=== PATIENT | female | born 1980 | race Caucasian/White ===

== ENCOUNTER 2017-10-25 16:59 | Emergency (ER) | payer SELFPAY ==
[2017-10-25 18:12] LABS: Urine Blood NEGATIVE (NEG); Urine Glucose NEGATIVE (NEG); Urine Protein NEGATIVE (NEG); Urine pH 6.5 (5.0-7.0)
[2017-10-25 19:04] LABS: Absolute Lymphocytes (CBC) 2.3 K/uL (0.7-4.9); Absolute Monocytes 0.6 K/uL (0.1-1.3); Absolute Neutrophil 5.9 K/uL (1.8-8.0); Basophils % 1.2 % (0-1.3); Eosinophils % 3.6 % (0-4.4); Hematocrit 39.6 % (36.0-45.0); Lymphocytes % 24.9 % (15.3-44.8); MCH 30.9 pg (27.0-35.0); MCV 90.1 fL (80-100); MPV 8.4 fL (7.6-11.3); Monocytes % 6.1 % (3.3-12.3)
[2017-10-25 19:34] LABS: ALT/SGPT 115 U/L (12-78); AST/SGOT 107 U/L (15-37); Albumin 4.3 g/dL (3.4-5.0); Alkaline Phosphatase 84 U/L (45-117); BUN Blood Urea Nitrogen 8 mg/dL (7-18); Bicarbonate 24 mmol/L (21-32); Bilirubin Direct 0.1 mg/dL (0-0.2); Bilirubin Total 0.4 mg/dL (0.2-1.0); Glucose Level 83 mg/dL (74-106); Lipase 130 U/L (73-393); Potassium 3.8 mmol/L (3.5-5.1); Protein, Total 8.3 g/dL (6.4-8.2); Sodium Level 140 mmol/L (136-145)
[2017-10-25 19:36] LABS: HCG, Quantitative < 1 mIU/mL (1-3)
--- NOTE | 2017-10-25 20:22 | RAD REPORT ---
EXAM DESCRIPTION: CT - Abdomen Pelvis W Contrast - 10/25/2017 7:59 pm CLINICAL HISTORY: Abdominal pain COMPARISON: None. TECHNIQUE: Biphasic, helical CT imaging of the abdomen and pelvis was performed following 100 ml non -ionic IV contrast. No oral contrast administered. All CT scans are performed using dose optimization technique as appropriate and may include automated exposure control or mA/KV adjustment according to patient size. FINDINGS: No suspicious findings in the lung bases. Diffuse fatty infiltration of the liver is present. No focal liver lesion. Spleen and pancreas show n o suspicious findings. Gallbladder and biliary tree are also without suspicious finding. Symmetric renal function is seen with no hydronephrosis or suspicious renal mass. No pyelonephritis o r acute renal parenchymal process. Punctate nonobstructing caliceal calculi are present. No urinary b ladder wall thickening, stone or mass. No adrenal abnormality. No uterine abnormality. Right ovary is unremarkable. Left ovary contains a 3.2 centimeter cyst. No cy st rupture or hemorrhage identified. No dilated bowel loops or bowel wall thickening. Appendix is normal. No acute GI process is evident. No free air, free fluid or inflammatory stranding. No mass or bulky lymphadenopathy. A small fat onl y umbilical hernia present. No suspicious bony findings. IMPRESSION: No acute GI or process seen. Punctate nonobstructing caliceal calculi present. No obs tructing calculus. No emergent abdominal or pelvic finding. Patient has a 3.2 centimeter left ovarian cyst without evidence for rupture or hemorrhage. Diffuse fatty infiltration of the liver.
--- NOTE | 2017-10-25 21:53 | ER ---
Nurse's Notes [facility] Name: Sugar Magana Age: 37 yrs Sex: Female : 1980 Arrival Date: 10/25/2017 Time: 17:02 Bed 16 Private MD: None, None Diagnosis: Abdominal and pelvic pain Presentation: 10/25 17:04 Presenting complaint: Patient states: "I think I may be . My stomach is hard sv and pushing up into my chest and causing palpitations." Rash to BLE started Monday. c/o SOB. Transition of care: patient was not received from another setting of care. Onset of symptoms was October 21, 2017. Care prior to arrival: None. 17:04 Method Of Arrival: Ambulatory sv 17:04 Acuity: CHIVO 3 sv 18:53 Risk Assessment: Do you want to hurt yourself or someone else? Patient reports no ph desire to harm self or others. Initial Sepsis Screen: Does the patient meet any 2 criteria? No. Patient's initial sepsis screen is negative. Does the patient have a suspected source of infection? No. Patient's initial sepsis screen is negative. 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 - Social history:: Smoking status: Patient/guardian denies using tobacco. - Ebola Screening: : No symptoms or risks identified at this time. Screenin:52 Abuse screen: Denies threats or abuse. Denies injuries from another. Nutritional ph screening: No deficits noted. Tuberculosis screening: No symptoms or risk factors identified. Fall Risk None identified. Assessment: 17:30 General: Appears in no apparent distress. comfortable, Behavior is calm, cooperative, ph appropriate for age, Denies fever, feeling ill. Pain: Denies pain. Neuro: Level of Consciousness is awake, alert, obeys commands, Oriented to person, place, time, situation. Cardiovascular: Reports palpitations, Denies chest pain, lightheadedness, nausea, vomiting, Capillary refill < 3 seconds Patient's skin is warm and dry. Respiratory: Airway is patent Respiratory effort is even, unlabored. GI: Abdomen is round non-distended, Bowel sounds present X 4 quads. Abd is soft and non tender X 4 quads. Reports bloating, Patient currently denies diarrhea, nausea, vomiting. Derm: Skin is intact, is healthy with good turgor, Skin is pink, warm \\T\\ dry. Musculoskeletal: Circulation, motion, and sensation intact. Range of motion: intact in all extremities. 18:59 Reassessment: Patient appears in no apparent distress at this time. Patient and/or ph family updated on plan of care and expected duration. Pain level reassessed. Patient is alert, oriented x 3, equal unlabored respirations, skin warm/dry/pink. Pt resting quietly, awaiting lab results. 19:25 General: Appears in no apparent distress. comfortable, Behavior is calm, cooperative, jb4 appropriate for age. Pain: Denies pain. Neuro: Level of Consciousness is awake, alert, obeys commands, Oriented to person, place, time, situation. Cardiovascular: Reports palpitations, Denies chest pain, lightheadedness, nausea, vomiting, Patient's skin is warm and dry. Respiratory: Airway is patent Respiratory effort is even, unlabored, Respiratory pattern is regular, symmetrical, Breath sounds are clear bilaterally. GI: Abdomen is round non-distended, Bowel sounds present X 4 quads. Abd is soft and non tender X 4 quads. Reports bloating, Patient currently denies diarrhea, nausea, vomiting. Derm: Skin is intact, Skin is pink, warm \\T\\ dry. Rash noted that is papular. Musculoskeletal: Circulation, motion, and sensation intact. Range of motion: intact in all extremities. 20:35 Reassessment: Patient appears in no apparent distress at this time. Patient and/or jb4 family updated on plan of care and expected duration. Pain level reassessed. Patient is alert, oriented x 3, equal unlabored respirations, skin warm/dry/pink. Patient denies pain at this time. 21:06 Reassessment: Patient appears in no apparent distress at this time. Patient and/or jb4 family updated on plan of care and expected duration. Pain level reassessed. Patient is alert, oriented x 3, equal unlabored respirations, skin warm/dry/pink. D/c \\T\\ F/u instructions to pt. Denies questions or concerns at this time. Vital Signs: 17:06 BP 166 / 107; Pulse 86; Resp 18; Temp 97.8; Pulse Ox 99% ; Height 5 ft. 0 in. (152.40 sv cm); Pain 0/10; 18:30 BP 129 / 96; Pulse 69; Resp 16; Pulse Ox 96% on R/A; ph 19:45 BP 105 / 85; Pulse 69; Resp 18; Pulse Ox 97% on R/A; Pain 0/10; jb4 20:30 BP 119 / 87; Pulse 71; Resp 18; Pulse Ox 96% on R/A; jb4 ED Course: 17:02 Patient arrived in ED. sb2 17:02 None, None is Private Physician. sb2 17:06 Triage completed. sv 17:07 Arm band placed on right wrist. sv 17:15 Timo Lira PA is PHCP. jr8 17:15 Darinel Loya MD is Attending Physician. jr8 17:21 Berna Cantrell, RN is Primary Nurse. ph 17:55 Bed in low position. Call light in reach. Side rails up X 1. Warm blanket given. Pulse jp3 ox on. NIBP on. 18:05 Initial lab(s) drawn, by al, sent to lab. Urine collected: clean catch specimen, clear, jp3 tonya colored, Amount Voided: 60mL. Inserted saline lock: 22 gauge in right forearm, using aseptic technique. Blood collected. 18:43 Basic Metabolic Panel Sent. jp3 18:43 HCG-Quantitative Sent. jp3 18:43 Basic Metabolic Panel Sent. jp3 18:43 CBC with Diff Sent. jp3 18:43 Creatinine for Radiology Sent. jp3 18:43 Hepatic Function Sent. jp3 18:43 Lipase Sent. jp3 19:17 Taqueria Curiel, RN is Primary Nurse. jb4 19:[address] via wheelchair. nj 19:59 CT completed. Patient tolerated procedure well. Patient moved back from CT. nj 19:59 CT Abd/Pelvis - W/Contrast In Process Unspecified. EDMS 21:06 No provider procedures requiring assistance completed. IV discontinued, intact, jb4 bleeding controlled. Administered Medications: No medications were administered Outcome: 20:38 Discharge ordered by . jr8 21:06 Discharged to home ambulatory. jb4 21:06 Condition: stable 21:06 Discharge instructions given to patient, family, Instructed on discharge instructions, follow up and referral plans. medication usage, Demonstrated understanding of instructions, follow-up care, medications, Prescriptions given X 1. 21:08 Patient left the ED. jb4 Signatures: Dispatcher [employer] EDMS Lavonne Farrar RN RN sv Timo Lira PA PA jr8 Berna Cantrell RN RN Taqueria Todd RN RN jb4 Winston Davalos Sheri sb2 Kale Luther jp3 Corrections: (The following items were deleted from the chart) 17:07 17:04 Presenting complaint: Patient states: "I think I may be . My stomach is sv hard and pushing up into my chest and causing palpitations." Rash to BLE started Monday. sv 17:08 17:06 BP 166 / 107; Resp 18bpm; Pulse Ox 99%; Temp 97.8F; Height 5 ft. 0 in.; Pain sv 0/10; sv
--- NOTE | 2017-10-25 21:53 | EDPHYS ---
Physician Documentation [facility] Name: Sugar Magana Age: 37 yrs Sex: Female : 1980 Arrival Date: 10/25/2017 Time: 17:02 Bed 16 Private MD: None, None ED Physician Darinel Loya HPI: 10/25 18:34 This 37 yrs old Female presents to ER via Ambulatory with complaints of Rash, jr8 Palpitations. 18:35 Patient stated that she has two spotty menstrual cycles for the past couple of months. jr8 Has had two + tests and some negative ones. Does not know if she is or not. Concerned because her stomach feels larger and when laying down feels as if she cannot breath. Noticed rash on arms an legs as well . Severity of symptoms: At their worst the symptoms were mild in the emergency department the symptoms are unchanged. The patient has not experienced similar symptoms in the past. The patient has not recently seen a physician. 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 - Social history:: Smoking status: Patient/guardian denies using tobacco. - Ebola Screening: : No symptoms or risks identified at this time. ROS: 18:35 Eyes: Negative for injury, pain, redness, and discharge, ENT: Negative for injury, jr8 pain, and discharge, Neck: Negative for injury, pain, and swelling, Cardiovascular: Negative for chest pain, palpitations, and edema, Respiratory: Negative for shortness of breath, cough, wheezing, and pleuritic chest pain, Back: Negative for injury and pain, MS/Extremity: Negative for injury and deformity, Neuro: Negative for headache, weakness, numbness, tingling, and seizure. 18:35 Abdomen/GI: Positive for abdominal pain, Negative for nausea, vomiting, and diarrhea. 18:35 Skin: Positive for rash. Exam: 18:40 Eyes: Pupils equal round and reactive to light, extra-ocular motions intact. Lids and jr8 lashes normal. Conjunctiva and sclera are non-icteric and not injected. Cornea within normal limits. Periorbital areas with no swelling, redness, or edema. ENT: Nares patent. No nasal discharge, no septal abnormalities noted. Tympanic membranes are normal and external auditory canals are clear. Oropharynx with no redness, swelling, or masses, exudates, or evidence of obstruction, uvula midline. Mucous membranes moist. Neck: Trachea midline, no thyromegaly or masses palpated, and no cervical lymphadenopathy. Supple, full range of motion without nuchal rigidity, or vertebral point tenderness. No Meningismus. Cardiovascular: Regular rate and rhythm with a normal S1 and S2. No gallops, murmurs, or rubs. Normal PMI, no JVD. No pulse deficits. Respiratory: Lungs have equal breath sounds bilaterally, clear to auscultation and percussion. No rales, rhonchi or wheezes noted. No increased work of breathing, no retractions or nasal flaring. Abdomen/GI: Soft, non-tender, with normal bowel sounds. No distension or tympany. No guarding or rebound. No evidence of tenderness throughout. Back: No spinal tenderness. No costovertebral tenderness. Full range of motion. MS/ Extremity: Pulses equal, no cyanosis. Neurovascular intact. Full, normal range of motion. Neuro: Awake and alert, GCS 15, oriented to person, place, time, and situation. Cranial nerves II-XII grossly intact. Motor strength 5/5 in all extremities. Sensory grossly intact. Cerebellar exam normal. Normal gait. 18:40 Skin: patient has flesh colored papule like rash to thighs and arms. Blanching and without erythema. Without pustules . Vital Signs: 17:06 BP 166 / 107; Pulse 86; Resp 18; Temp 97.8; Pulse Ox 99% ; Height 5 ft. 0 in. (152.40 sv cm); Pain 0/10; 18:30 BP 129 / 96; Pulse 69; Resp 16; Pulse Ox 96% on R/A; ph 19:45 BP 105 / 85; Pulse 69; Resp 18; Pulse Ox 97% on R/A; Pain 0/10; jb4 20:30 BP 119 / 87; Pulse 71; Resp 18; Pulse Ox 96% on R/A; jb4 MDM: 17:15 Patient medically screened. jr8 20:31 Data reviewed: vital signs, nurses notes, lab test result(s), radiologic studies, CT jr8 scan, and as a result, I will discharge patient. Data interpreted: Pulse oximetry: on room air is 96 %. Interpretation: normal. Counseling: I had a detailed discussion with the patient and/or guardian regarding: the historical points, exam findings, and any diagnostic results supporting the discharge/admit diagnosis, lab results, radiology results, the need for outpatient follow up, a family practitioner, to return to the emergency department if symptoms worsen or persist or if there are any questions or concerns that arise at home. 10/25 17:41 Order name: Basic Metabolic Panel [facility] 10/25 17:41 Order name: CBC with Diff; Complete Time: 19:33 [facility] 10/25 17:41 Order name: Creatinine for Radiology; Complete Time: 19:33 [facility] 10/25 17:41 Order name: Hepatic Function; Complete Time: 19:43 [facility] 10/25 17:41 Order name: Lipase; Complete Time: 19:43 [facility] 10/25 17:41 Order name: HCG-Quantitative; Complete Time: 19:43 [facility] 10/25 17:41 Order name: Urine Test (obtain specimen); Complete Time: 18:43 [facility] 10/25 17:41 Order name: IV Saline Lock; Complete Time: 18:43 [facility] 10/25 17:41 Order name: Labs collected and sent; Complete Time: 18:43 [facility] 10/25 17:41 Order name: Urine Dipstick-Ancillary (obtain specimen); Complete Time: 18:43 [facility] 10/25 17:42 Order name: Basic Metabolic Panel; Complete Time: 19:43 [facility] 10/25 17:57 Order name: Urine Dipstick--Ancillary (enter results); Complete Time: 18:34 eb 10/25 17:57 Order name: Urine --Ancillary (enter results); Complete Time: 18:34 10/25 19:43 Order name: CT Abd/Pelvis - W/Contrast; Complete Time: 20:31 jr8 Administered Medications: No medications were administered Disposition: 10/25/17 20:38 Discharged to Home. Impression: Abdominal and pelvic pain. - Condition is Stable. - Discharge Instructions: Abdominal Pain, Adult. - Prescriptions for Prednisone 20 mg Oral Tablet - take 1 tablet by ORAL route once daily for 5 days; 5 tablet. - Medication Reconciliation Form, Thank You Letter, Antibiotic Education, Prescription Opioid Use form. - Follow up: Private Physician; When: 2 - 3 days; Reason: Recheck today's complaints, Continuance of care, Re-evaluation by your physician. - Problem is new. - Symptoms have improved. Addendum: 10/29/2017 18:22 Co-signature as Attending Physician, Darinel Loya MD. m a2 Signatures: Dispatcher [employer] EDLavonne Motley RN RN Timo Jj PA PA jr8 Taqueria Curiel RN RN jb4 Darinel Loya MD MD ma2 Corrections: (The following items were deleted from the chart) 10/25 21:08 20:38 10/25/2017 20:38 Discharged to Home. Impression: Abdominal and pelvic pain. jb4 Condition is Stable. Forms are Medication Reconciliation Form, Thank You Letter, Antibiotic Education, Prescription Opioid Use. Follow up: Private Physician; When: 2 - 3 days; Reason: Recheck today's complaints, Continuance of care, Re-evaluation by your physician. Problem is new. Symptoms have improved. jr8
[2017-10-25 22:24] VITALS: TEMP 97.8
[2017-10-25 22:28] VITALS: BP 119/87; O2SAT 96
== END 2017-10-25 21:08 | disposition home or self-care (01) ==
LOC: ER 16:59
DX: R10.2 Pelvic and perineal pain (principal); R21 Rash and other nonspecific skin eruption
CPT/HCPCS: 36415; 74177; 80048; 80076; 81003; 81025; 83690; 84702; 85025; 99284; Q9967

== ENCOUNTER 2020-08-22 10:36 | Inpatient (IN) | payer SELFPAY ==
--- NOTE | 2020-08-22 11:28 | RAD REPORT ---
EXAM DESCRIPTION: RAD - Chest Single View - 08/22/2020 11:14 am CLINICAL HISTORY: DYSPNEA COMPARISON: None TECHNIQUE: AP portable chest image was obtained 08/22/2020 11:14 am . FINDINGS: Lungs are clear. Heart and vasculature are normal. No measurable pleural effusion and no p neumothorax. No acute bony abnormality seen. No acute aortic findings suspected. IMPRESSION: No acute cardiopulmonary process.
[2020-08-22 11:31] LABS: Absolute Lymphocytes (CBC) 2.5 K/uL (0.7-4.9); Basophils % 0.7 % (0-1.3); Lymphocytes % 15.6 % (15.3-44.8); MPV 9.3 fL (7.6-11.3); RBC Red Blood Cell Count 2.44 M/uL (3.86-4.86)
[2020-08-22 11:36] LABS: Protime INR 1.09
[2020-08-22 11:42] LABS: Hematocrit 20.8 % (36.0-45.0)
[2020-08-22 11:56] LABS: ALT/SGPT 36 U/L (12-78); AST/SGOT 28 U/L (15-37); Albumin 3.9 g/dL (3.4-5.0); Alkaline Phosphatase 74 U/L (45-117); BUN Blood Urea Nitrogen 14 mg/dL (7-18); Bicarbonate 19 mmol/L (21-32); Bilirubin Direct < 0.1 mg/dL (0-0.2); Bilirubin Total 0.3 mg/dL (0.2-1.0); Glucose Level 155 mg/dL (74-106); NT PRO-BNP 50 pg/mL (<125); Potassium 3.6 mmol/L (3.5-5.1); Protein, Total 7.2 g/dL (6.4-8.2); Sodium Level 138 mmol/L (136-145); Troponin (Emerg Dept Use Only) 0.03 ng/mL (0.0-0.045)
[2020-08-22 12:06] LABS: Urine Blood 1+ (Negative); Urine Glucose Negative (Negative); Urine Protein 1+ (Negative); Urine Specific Gravity >=1.030 (1.005-1.030); Urine pH 5.5 (5.0-7.0)
[2020-08-22 12:29] LABS: Urine Specific Gravity/Preg >1.030 (1.005-1.030)
[2020-08-22 12:37] LABS: Anisocytosis 2+; Blood Morphology Comment NOTED (NOT SEEN); Platelet Estimate ADEQ; Polychromasia SLIGHT
[2020-08-22] MEDS ORDERED: NA CHLORIDE 0.9% 250 ML ONE ×2 (12:50→14:29)
[2020-08-22] MEDS ORDERED: ACETAMINOPHEN 325 MG TABLET ONE (13:52)
[2020-08-22] MEDS ORDERED: DIPHENHYDRAMINE 50 MG/ML VIAL ONE (13:53)
--- NOTE | 2020-08-22 14:53 | EDPHYS ---
Physician Documentation [facility] Name: Sugar Magana Age: 40 yrs Sex: Female : 1980 Arrival Date: 08/22/2020 Time: 10:36 Bed Ultrasound Private MD: ED Physician Sagar Freitas HPI: 08/22 12:42 This 40 yrs old Female presents to ER via Wheelchair with complaints of jr8 Shortness Of Breath. 12:42 The patient has shortness of breath at rest. Onset: The symptoms/episode began/occurred jr8 acutely, today. Duration: The symptoms are continuous, and are steadily getting worse. The patient's shortness of breath is aggravated by exertion, light activity, walking. Associated signs and symptoms: Pertinent positives: dizziness. Severity of symptoms: At their worst the symptoms were moderate in the emergency department the symptoms are unchanged. The patient has not experienced similar symptoms in the past. The patient has not recently seen a physician. Patient stated that she had sudden onset shortness of breath with dizziness and fatigue. Currently on menstrual cycle but feels it is not heavier than what she normally experiences. Denies having this problems before. No medical history . 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 Flu vaccine is not up to date. - Social history:: Smoking status: Patient reports the use of cigarette tobacco products, smokes one-half pack cigarettes per day. ROS: 12:42 Eyes: Negative for injury, pain, redness, and discharge, ENT: Negative for injury, jr8 pain, and discharge, Neck: Negative for injury, pain, and swelling, Cardiovascular: Negative for chest pain, palpitations, and edema, Abdomen/GI: Negative for abdominal pain, nausea, vomiting, diarrhea, and constipation, Back: Negative for injury and pain, MS/Extremity: Negative for injury and deformity. 12:42 Respiratory: Positive for cough, shortness of breath. 12:42 : Positive for vaginal bleeding. 12:42 Skin: Positive for pallor. 12:42 Neuro: Positive for dizziness, weakness. Exam: 12:42 Head/Face: Normocephalic, atraumatic. ENT: Nares patent. No nasal discharge, no jr8 septal abnormalities noted. Oropharynx with no redness, swelling, or masses, exudates, or evidence of obstruction, uvula midline. Mucous membranes dry. Gums and lips pale Neck: Trachea midline, no thyromegaly or masses palpated, and no cervical lymphadenopathy. Supple, full range of motion without nuchal rigidity, or vertebral point tenderness. No Meningismus. Abdomen/GI: Soft, non-tender, with normal bowel sounds. No distension or tympany. No guarding or rebound. No evidence of tenderness throughout. Back: No spinal tenderness. No costovertebral tenderness. Full range of motion. MS/ Extremity: Pulses equal, no cyanosis. Neurovascular intact. Full, normal range of motion. Neuro: Awake and alert, GCS 15, oriented to person, place, time, and situation. Cranial nerves II-XII grossly intact. Motor strength 5/5 in all extremities. Sensory grossly intact. 12:42 Eyes: Periorbital structures: are sunken, Pupils: equal, round, and reactive to light and accomodation, Extraocular movements: intact throughout, Conjunctiva: pale, bilaterally, Corneas: are normal, Sclera: no appreciated abnormality, Anterior chamber: normal, Lids and lashes: appear normal. 12:42 Cardiovascular: Rate: tachycardic, Rhythm: regular, Pulses: Pulses are 1+ in right radial artery and left radial artery. Heart sounds: normal, normal S1and S2, no S3 or S4, no murmur, no rub, no gallop, Edema: is not appreciated. 12:42 Respiratory: mild respiratory distress is noted, Respirations: tachypnea, that is mild, Breath sounds: are clear throughout, no bronchial sounds, no decreased breath sounds, no rales, rhonchi, no stridor, no wheezing. 12:42 Skin: Appearance: Color: pale, Temperature: cool, Moisture: dry. Vital Signs: 10:53 BP 123 / 77; Pulse 122; Resp 28; Temp 97.6(TE); Pulse Ox 88% on R/A; Weight 77.11 kg ca1 (R); Height 5 ft. 0 in. (152.40 cm) (R); Pain 0/10; 10:56 Pulse Ox 100% on 2 lpm NC; ca1 12:10 BP 102 / 66; Pulse 108; Temp 98.3(O); Pulse Ox 90% on 2 lpm NC; ap3 12:35 BP 104 / 76; Pulse 115; Resp 19; Temp 96.8(TE); Pulse Ox 100% on 1 lpm NC; ae4 13:41 BP 99 / 71; Pulse 123; Resp 12; Temp 97.0; Pulse Ox 100% on 2 lpm NC; ap3 16:23 BP 124 / 89; Pulse 102; Resp 15; Pulse Ox 100% on 2 lpm NC; ap3 17:24 BP 113 / 84; Pulse 92; Resp 15; Pulse Ox 100% on 1 lpm NC; ae4 10:53 Body Mass Index 33.20 (77.11 kg, 152.40 cm) ca1 MDM: 10:52 Patient medically screened. jr8 14:42 Data reviewed: vital signs, nurses notes, lab test result(s), radiologic studies, jr8 ultrasound. Data interpreted: Pulse oximetry: on room air is 100 %. Interpretation: normal. Counseling: I had a detailed discussion with the patient and/or guardian regarding: the historical points, exam findings, and any diagnostic results supporting the discharge/admit diagnosis, lab results, radiology results, the need for further work-up and treatment in the hospital. ED course: Dr. Dimas called and will see patient and accepted for admission . 08/22 11:02 Order name: Basic Metabolic Panel; Complete Time: 12:04 08/22 11:02 Order name: CBC with Diff; Complete Time: 12:41 08/22 11:02 Order name: LFT's; Complete Time: 12:04 08/22 11:02 Order name: Magnesium; Complete Time: 12:04 08/22 11:02 Order name: NT PRO-BNP; Complete Time: 12:04 08/22 11:02 Order name: PT-INR; Complete Time: 12:04 08/22 11:02 Order name: Troponin (emerg Dept Use Only); Complete Time: 12:04 08/22 11:02 Order name: TS 08/22 11:02 Order name: Lactate; Complete Time: 12:04 08/22 11:02 Order name: Blood Culture Adult (2) 08/22 11:02 Order name: Procalcitonin; Complete Time: 12:19 [facility] 08/22 11:44 Order name: Manual Differential; Complete Time: 12:41 EDOK 08/22 11:02 Order name: XRAY Chest (1 view); Complete Time: 11:29 8 08/22 12:04 Order name: Packed RBC Leukored EDOK 08/22 12:05 Order name: Urine Dipstick-Ancillary; Complete Time: 12:16 EDMS 08/22 12:13 Order name: Urine --Ancillary (enter results) em1 08/22 12:14 Order name: Urine --Ancillary; Complete Time: 12:33 EDOK 08/22 12:15 Order name: ABO/RH no charge; Complete Time: 12:16 EDOK 08/22 13:08 Order name: SARS-COV-2 RT PCR; Complete Time: 13:09 [facility] 08/22 14:47 Order name: US Transvaginal Study (Probe); Complete Time: 16:30 08/22 16:03 Order name: Hemoglobin 08/22 16:03 Order name: Hemoglobin; Complete Time: 17:42 EDOK 08/22 16:38 Order name: Hematocrit; Complete Time: 17:42 [facility] 08/22 17:39 Order name: Lactate Sepsis 2 HR Follow-up; Complete Time: 17:42 [facility] 08/22 11:02 Order name: EKG; Complete Time: 11:03 [facility] 08/22 11:02 Order name: Cardiac monitoring; Complete Time: 11:19 [facility] 08/22 11:02 Order name: EKG - Nurse/Tech; Complete Time: 11:19 08/22 11:02 Order name: IV Saline Lock; Complete Time: 11:20 08/22 11:02 Order name: Labs collected and sent; Complete Time: 11:20 [facility] 08/22 11:02 Order name: O2 Per Protocol; Complete Time: 11:19 08/22 11:02 Order name: O2 Sat Monitoring; Complete Time: 11:20 08/22 11:02 Order name: Urine Test (obtain specimen); Complete Time: 12:13 [facility] Administered Medications: 13:35 Drug: Benadryl (diphenhydrAMINE) 12.5 mg Route: IVP; Site: left antecubital; ae4 15:06 Follow up: Response: No adverse reaction jl7 13:35 Drug: Tylenol 650 mg Route: PO; ae4 18:14 Follow up: Response: No adverse reaction jl7 15:00 Drug: Premarin 25 mg Route: IV; Rate: calculated rate; Site: left antecubital; jl7 15:05 Follow up: Response: No adverse reaction; IV Status: Completed infusion jl7 Disposition Summary: 08/22/20 14:53 Hospitalization Ordered Hospitalization Status: Observation jr8 Provider: Kenny Dimas jr8 Condition: Fair jr8 Problem: new jr8 Symptoms: have improved jr8 Bed/Room Type: Standard 8 [facility]08[facility]22[facility]20 17:27[facility] dw Room Assignment: [facility](08/22/20 17:27) Diagnosis - Abnormal uterine and vaginal bleeding, unspecified jr8 - Acute posthemorrhagic anemia jr8 Forms: - Medication Reconciliation Form jr8 - SBAR form jr8 Signatures: Dispatcher [employer] EDMS Vicki Mckeon RN RN dw Timo Lira PA PA jr8 Van Garcia RN RN jl7 Vee Srinivasan RN PHILIPPE ca1 Darren Merino RN RN ae4 Corrections: (The following items were deleted from the chart) 12:04 11:47 PACKED RBC LEUKORED -1+BB.LAB.BRZ ordered. EDMS EDMS 12:04 11:48 ABO/RH typing ordered. EDMS EDMS 12:04 11:48 Antibody Screen ordered. EDMS EDMS 12:11 11:02 CORONAVIRUS+MR.LAB.BRZ ordered. EDMS EDMS 16:38 16:28 Hematocrit+H.LAB.BRZ ordered. EDMS EDMS 17:27 14:53 Telemetry/MedSurg (observation) jr8 dw 17:27 14:53 jr8 dw
--- NOTE | 2020-08-22 14:53 | ER ---
Nurse's Notes [facility] Name: Sugar Magana Age: 40 yrs Sex: Female : 1980 Arrival Date: 08/22/2020 Time: 10:36 Bed Ultrasound Private MD: Diagnosis: Abnormal uterine and vaginal bleeding, unspecified;Acute posthemorrhagic anemia Presentation: 08/22 10:53 Chief complaint: Patient states: SOB with dry cough started last night. Denies any past ca1 medical history. Denies feeling sick days before. Reports diarrhea this morning. Coronavirus screen: Client denies travel out of the [place] in the last 14 days. cough unrelated to allergies, shortness of breath, Client presents with at least one sign or symptom that may indicate coronavirus-19. Standard/surgical mask placed on the client. Provider contacted for isolation considerations. Ebola Screen: Patient negative for fever greater than or equal to 101.5 degrees Fahrenheit, and additional compatible Ebola Virus Disease symptoms Patient denies exposure to infectious person. Patient denies travel to an Ebola-affected area in the 21 days before illness onset. No symptoms or risks identified at this time. Initial Sepsis Screen: Does the patient meet any 2 criteria? RR > 20 per min. HR > 90 bpm. Yes Does the patient have a suspected source of infection? Yes: Productive cough/pneumonia If YES to both, name of provider notified: Timo MANN. Risk Assessment: Do you want to hurt yourself or someone else? Patient reports no desire to harm self or others. Onset of symptoms was August 21, 2020. 10:53 Acuity: CHIVO 2 ca1 10:53 Method Of Arrival: Wheelchair ca1 Triage Assessment: 18:13 Respiratory: Onset: The symptoms/episode began/occurred yesterday. 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 Flu vaccine is not up to date. - Social history:: Smoking status: Patient reports the use of cigarette tobacco products, smokes one-half pack cigarettes per day. Screenin:32 Abuse screen: Denies threats or abuse. Nutritional screening: No deficits noted. ae4 Tuberculosis screening: No symptoms or risk factors identified. Fall Risk None identified. Assessment: 11:39 General: Appears distressed, uncomfortable. ae4 11:39 Respiratory: Reports shortness of breath Sudden shortness of breath Airway is patent ae4 Respiratory effort is even, Mildly labored Breath sounds are clear in right upper lobe and left upper lobe. Respiratory: Reports shortness of breath at rest on exertion the patient has moderate shortness of breath. GI: No signs and/or symptoms were reported involving the gastrointestinal system. Abdomen is round. : No signs and/or symptoms were reported regarding the genitourinary system. EENT: No signs and/or symptoms were reported regarding the EENT system. Oral mucosa is dry. Derm: Skin is pale, Skin temperature is cool. Musculoskeletal: Reports Generalized weakness. 11:44 General: Behavior is cooperative, anxious, restless. Pain: Denies pain. Neuro: Level of ae4 Consciousness is awake, alert, obeys commands, Oriented to person, place, time, situation, Appropriate for age. Cardiovascular: Rhythm is sinus tachycardia. 12:04 Reassessment: Pt sitting on bedside commode, reports increased SOB, states "I feel like jl7 I'm going to pass out." Pt pale, clammy, tachypneic. Pt lifted and placed in bed by MACKENZIE Greenwood and PHILIPPE Araujo. Several clots with approximately 200 mL bright red blood noted in bedside commode. Flynn placed. Awaiting blood for transfusion. 12:10 Reassessment: Assisted patient to bedside commode. Patient became increasingly short of ae4 breath upon exertion. Upon lying supine, patient verbalized feeling better and able to catch her breath. 13:30 Reassessment: Patient states she fel a "flushing", "warmth" in her thighs and abdomen. ae4 Provider notified, new orders received. 17:22 Reassessment: Patient appears in no apparent distress at this time. Patient states ae4 feeling better. Patient states symptoms have improved. 18:12 Reassessment: Patient appears in no apparent distress at this time. Patient and/or ae4 family updated on plan of care and expected duration. Pain level reassessed. Patient denies pain at this time. Patient states feeling better. Patient states symptoms have improved. Vital Signs: 10:53 BP 123 / 77; Pulse 122; Resp 28; Temp 97.6(TE); Pulse Ox 88% on R/A; Weight 77.11 kg ca1 (R); Height 5 ft. 0 in. (152.40 cm) (R); Pain 0/10; 10:56 Pulse Ox 100% on 2 lpm NC; ca1 12:10 BP 102 / 66; Pulse 108; Temp 98.3(O); Pulse Ox 90% on 2 lpm NC; ap3 12:35 BP 104 / 76; Pulse 115; Resp 19; Temp 96.8(TE); Pulse Ox 100% on 1 lpm NC; ae4 13:41 BP 99 / 71; Pulse 123; Resp 12; Temp 97.0; Pulse Ox 100% on 2 lpm NC; ap3 16:23 BP 124 / 89; Pulse 102; Resp 15; Pulse Ox 100% on 2 lpm NC; ap3 17:24 BP 113 / 84; Pulse 92; Resp 15; Pulse Ox 100% on 1 lpm NC; ae4 10:53 Body Mass Index 33.20 (77.11 kg, 152.40 cm) ca1 ED Course: 10:36 Patient arrived in ED. as 10:52 Timo Lira PA is PHCP. jr8 10:52 Sagar Freitas MD is Attending Physician. jr8 10:54 Tanya Ocampo, PHILIPPE is Primary Nurse. ap3 11:03 Triage completed. ca1 11:03 Arm band placed on right wrist. ca1 11:14 XRAY Chest (1 view) In Process Unspecified. EDMS 11:19 COVID swab sent to lab. jl7 11:32 Inserted saline lock: 20 gauge in left antecubital area, using aseptic technique. Blood ae4 collected. 11:32 Inserted saline lock: 20 gauge in right antecubital area, using aseptic technique. ae4 Blood collected. 11:33 Placed in gown. Bed in low position. Call light in reach. Side rails up X 1. Cardiac ae4 monitor on. Pulse ox on. NIBP on. Warm blanket given. 12:04 Flynn cath inserted, using sterile technique, 16 Fr., by mi, balloon inflated, urine jl7 specimen collected. returned clear yellow urine. Patient tolerated well. 14:52 Kenny Dimas MD is Hospitalizing Provider. jr8 16:00 Assist provider with pelvic exam: Set up pelvic tray. Performed by Timo vaca7 Patient tolerated poorly. 16:07 US Transvaginal Study (Probe) In Process Unspecified. EDMS 17:57 Patient admitted, IV remains in place. intact, No redness/swelling at site. jl7 Administered Medications: 13:35 Drug: Benadryl (diphenhydrAMINE) 12.5 mg Route: IVP; Site: left antecubital; ae4 15:06 Follow up: Response: No adverse reaction jl7 13:35 Drug: Tylenol 650 mg Route: PO; ae4 18:14 Follow up: Response: No adverse reaction jl7 15:00 Drug: Premarin 25 mg Route: IV; Rate: calculated rate; Site: left antecubital; jl7 15:05 Follow up: Response: No adverse reaction; IV Status: Completed infusion jl7 Outcome: 14:53 Decision to Hospitalize by Provider. jr8 17:57 Admitted to L \\T\\ D, accompanied by tech, via stretcher, room 270, with oxygen, with jl7 chart, Report called to PHILIPPE Desouza 17:57 Condition: stable 17:57 Discharge instructions given to patient, Instructed on the need for admit, Demonstrated understanding of instructions. 18:28 Patient left the ED. ae4 Signatures: Dispatcher [employer] EDWI Lindsey Salmeron Josh, PA PA jr8 Van Garcia RN RN jl7 Tanya Ocampo RN RN ap3 Vee Srinivasan RN RN ca1 Darren Merino RN RN ae4 Corrections: (The following items were deleted from the chart) 11:06 10:53 Initial Sepsis Screen: Does the patient meet any 2 criteria? RR > 20 per min. HR ca1 > 90 bpm. Yes Does the patient have a suspected source of infection? No. Patient's initial sepsis screen is negative. ca1 12:18 12:09 Respiratory: Reports shortness of breath Sudden shortness of breath Airway is ae4 patent Respiratory effort is even, Mildly labored Breath sounds are clear in right upper lobe and left upper lobe ae4 12:18 12:09 GI: No signs and/or symptoms were reported involving the gastrointestinal system. ae4 Abdomen is round ae4 : 12:09 : No signs and/or symptoms were reported regarding the genitourinary system. ae4ae4 12: 12:09 EENT: No signs and/or symptoms were reported regarding the EENT system. Oral ae4 mucosa is dry. ae4 :18 12:09 Derm: Skin is pale, Skin temperature is cool ae4 ae4 : 12:09 Musculoskeletal: Reports Generalized weakness, ae4 ae4 : 12:09 Respiratory: Reports shortness of breath at rest on exertion the patient has ae4 moderate shortness of breath ae4 15:06 15:06 Premarin 25 mg IV at calculated rate in left antecubital jl7 jl7 18:13 17:57 No provider procedures requiring assistance completed. jl7 jl7
[2020-08-22] MEDS ORDERED: ESTROGENS,CONJ 25 MG IV ONE (15:16)
[2020-08-22] MEDS ORDERED: WATER FOR INJ,STERILE 10 ML ONE (15:17)
--- NOTE | 2020-08-22 16:22 | RAD REPORT ---
EXAM DESCRIPTION: US - Transvaginal Study Probe - 08/22/2020 4:06 pm CLINICAL HISTORY: VAGINAL BLEEDING COMPARISON: Abdomen Pelvis W Contrast dated 10/25/2017 TECHNIQUE: Endovaginal sonography was performed. FINDINGS: Uterus is approximately 10.3 x 5.9 x 5.1 cm in size. A moderate size nabothian cyst is pre sent posterior wall of the cervix. No solid mass of the myometrium identifiable. Endometrium is thickened and heterogeneous measuring up to 2 cm in thickness. Greatest thickness is p resent in the lower uterine segment. The endometrium - myometrium interface does appear to be preserv ed. Abnormally thickened endometrial tissue an hemorrhagic components can have a similar appearance. No clearly defined endometrial mass. Both ovaries are identified in the adnexa with normal blood flow in the ovarian stroma on Doppler ass essment. No ovarian or adnexal solid or cystic mass. No blood or fluid in the cul de sac. IMPRESSION: Thickened heterogeneous endometrium up to 2 cm in thickness. No clearly defined or discr ete endometrial mass. Endometrial heterogeneous thickening and hemorrhagic products can have a simila r echo pattern. No myometrial mass. No ovarian or adnexal finding. Endometrial tissue sampling may be needed if the thickened endometrial canal persists.
[2020-08-22 17:36] LABS: Hematocrit 27.8 % (36.0-45.0)
[2020-08-22] MEDS ORDERED: ONDANSETRON 4 MG/2 ML VIAL IV PRN (18:38)
[2020-08-22] MEDS: ACETAMINOPHEN 325 MG TABLET PO PRN (18:55)
[2020-08-22] MEDS: NA CHLORIDE 0.9% 1,000 ML IV SCH (18:55)
[2020-08-22 18:56] VITALS: O2SAT 100
[2020-08-22 19:00] VITALS: BMI 33.2
[2020-08-23] MEDS: NA CHLORIDE 0.9% 1,000 ML IV SCH (05:12)
[2020-08-23 05:14] LABS: Absolute Lymphocytes (CBC) 3.6 K/uL (0.7-4.9); Basophils % 0.7 % (0-1.3); Lymphocytes % 25.1 % (15.3-44.8); MPV 8.6 fL (7.6-11.3); RBC Red Blood Cell Count 2.29 M/uL (3.86-4.86)
[2020-08-23 05:28] LABS: Hematocrit 20.2 % (36.0-45.0)
[2020-08-23 05:42] LABS: Potassium 3.6 mmol/L (3.5-5.1)
[2020-08-23] MEDS ORDERED: NA CHLORIDE 0.9% 100 ML ONE (06:32)
[2020-08-23] MEDS ORDERED: NA CHLORIDE 0.9% 0 ML ONE (06:37)
[2020-08-23] MEDS ORDERED: NA CHLORIDE 0.9% 250 ML IV SCH (07:00)
[2020-08-23] MEDS ORDERED: MEDROXYPROGEST ACET 150 MG/ML IM SCH (08:00)
[2020-08-23] MEDS: ACETAMINOPHEN 325 MG TABLET PO PRN (08:14)
[2020-08-23] MEDS ORDERED: Ringers Lactate 1,000 ML IV ONE (10:46)
[2020-08-23 12:07] VITALS: BP 93/53; TEMP 97.5
--- NOTE | 2020-08-24 16:11 | EKG ---
Test Date: 2020-08-22 Test Time: 11:14:32 J2Ee Consultant: ELLY MEASUREMENT RESULTS: Intervals: Rate: 110 NC: 130 QRSD: 80 QT: 344 QTc: 465 [place]: P: 43 NC: 130 QRS: 66 T: 250 INTERPRETIVE STATEMENTS: Sinus tachycardia T wave abnormality, consider inferolateral ischemia Abnormal ECG No previous ECG available for comparison Electronically Signed On 08-24-20 16:05:19 CDT by Blaze Tineo
--- NOTE | 2020-09-01 08:40 | PREOPHP ---
NDate of Admission: 08/23/2020 History Of Present Illness: A 40-year-old 1, para 1, using abstinence for control for several years now. She has been on Depo-Provera in the past with good results. Came into our emerge ncy room with low blood pressure, elevated pulse, all signs of acute blood loss, was transfused with 2 units of blood. She went from the mid 6 hemoglobin up to 9 and felt better in fact last night aske d for something to eat, which was declined as the hemoglobin though has dropped back down to 6.8. He r dizziness is better, but less and she says her bleeding is much less than what it was. We are jamie altman her 3rd unit of blood at this point. She has had 25 mg of Premarin IV. We have discussed today o ptions. She is a smoker of half pack a day. She knows that regular control pills increase the risk for clots, strokes, and heart attacks in anybody over 35 who smokes, but that could be an accep table option for a short period of time Depo-Provera. Micronor which is a progesterone only con trol pill, and Mirena IUD has been discussed. Right now, the patient is chosen to go with Depo-Prove ra and the Micronor control pills and stay away from the estrogen besides what she has already had. She knows it is probably less effective, but reduces the risk for clotting problems. Family History: Both her grandmothers had breast cancer. BRCA1 and 2 discussed. Her mother had alpa g cancer, but is now in remission and recently had a dissecting aortic aneurysm, but that has been [place] care of as well. Father had a heart attack years ago. Allergies: THE PATIENT IS ALLERGIC TO NAPROXEN, GIVES HER HIVES. Past Surgical History: She has had no previous surgeries. Physical Examination: HEENT: Her conjunctivae are pale. General: She is alert. Heart and Lungs: Have been auscultated in the emergency room and normal. Breasts: Not done. Pelvic: Not done either as the ultrasound demonstrates normal sized uterus with a thickened endometr ium, which would be expected. Extremities: Clear without edema, cyanosis, or clubbing. Assessment And Plan: Basically, a healthy female with severe dysfunctional bleeding. She has had no rmal periods up until this last one. Right now, she looks quite stable. I think that with hormonal suppression we can get her through this, but mcc she needs to be thinking about going back on D epo-Provera even though she is not sexually active. We even discussed giving regular control p ills if she becomes a nonsmoker, but she knows she has to be a nonsmoker for a year before she is con sidered truly a nonsmoker. We will see how she feels this afternoon after the third unit here. We w ill try to stand her beside the bed and see if she tolerates that. If she does and we will ambulate her and if the bleeding is minimal, we will send her home with the Micronor as stated. Otherwise, co ntinued observation. THANG/ALAN Voice ID: [id number]
--- NOTE | 2020-09-07 15:14 | PN ---
After further deliberation have decided to go with control pills just for a very priya rt period of time. Two pills a day for next 5 days to bring this under control. She knows this bibiana ot be done if she is ambulatory and has agreed to that. Otherwise, the Depo-Provera followed by the Micronor control pills will still be an option, but with the severity of the bleeding, I think that short term burst of regular control pills would be better as far as being able to control the bleeding. After 5 days, the Depo-Provera and Micronor I think would be a good option at that maddie e. I still feel that the best option in long run is the Mirena IUD. THANG/ALAN Voice ID: [id number] Report ID: [id number]
== END 2020-08-23 14:30 | disposition home or self-care (01) | DRG 812 ==
LOC: ER 10:36 → ERHOLD 17:05 → 2ND-WC 17:57 → OBSVTOIN 08-23 09:03
PROVIDERS: ADMIT Specialist; ATTEND Specialist
PROC: 30233N1 Transfusion of Nonautologous Red Blood Cells into Peripheral Vein, Percutaneous Approach (ICD-10-PCS; principal; 2020-08-23)
DX: D62 Acute posthemorrhagic anemia (principal); N93.8 Other specified abnormal uterine and vaginal bleeding; Z88.6 Allergy status to analgesic agent
CPT/HCPCS: 36415; 36430; 51702; 71045; 76830; 80048; 80076; 81003; 81025; 83605; 83735; 83880; 84145; 84484; 85014; 85018; 85025; 85610; 86850; 86900; 86901; 87040; 93005; 96374; 96375; 99285; G0378; J1200; J1410; J7030; J7040; J7050; J7120; P9016; U0003

== ENCOUNTER 2021-10-20 11:22 | Observation (INO) | payer SELFPAY ==
[2021-10-20 12:05] LABS: Absolute Lymphocytes (CBC) 2.5 K/uL (0.7-4.9); Hematocrit 21.6 % (36.0-45.0); Lymphocytes % 23.5 % (15.3-44.8); MCV 70.1 fL (80-100); MPV 7.3 fL (7.6-11.3); RBC Red Blood Cell Count 3.08 M/uL (3.86-4.86)
[2021-10-20 12:22] LABS: Albumin 4.1 g/dL (3.4-5.0); Bilirubin Total 0.3 mg/dL (0.2-1.0); Potassium 3.4 mmol/L (3.5-5.1); Protein, Total 8.1 g/dL (6.4-8.2)
--- NOTE | 2021-10-20 13:29 | RAD REPORT ---
EXAM DESCRIPTION: US - Pelvis Complete - 10/20/2021 1:10 pm CLINICAL HISTORY: ABD PAIN Pelvic pain. COMPARISON: Transvaginal Study Probe dated 08/22/2020 FINDINGS: The uterus is normal in size, shape and echotexture. The uterus measures 10.8 x 6.5 x 5.6 cm. The endometrial stripe measures 16 mm, mildly thickened. Both ovaries are normal in size, shape and echotexture. The right ovary measures 3.6 x 3.0 x 2.0 cm. The left ovary measures 4.1 x 2.7 x 2.4 cm. No ovarian or parovarian lesions. No adnexal masses. Normal Doppler blood flow was demonstrated to both ovaries. No significant pelvic ascites. IMPRESSION: Mildly thickened endometrial stripe is present measuring up to 16 mm. This can be within normal range in this age group.Other possibilities would include endometrial hyperplasia or polyp. D irect visualization with hysteroscopy would be recommended if persistent heavy bleeding is present.
[2021-10-20 13:43] LABS: Platelet Estimate INCR; White Blood Cell Scan OK (OK)
[2021-10-20 13:44] LABS: Anisocytosis 1+; Blood Morphology Comment NOTED (NOT SEEN); Hypochromasia 1+; Platelets, Giant 1+
[2021-10-20 14:17] LABS: SARS-CoV-2 Antigen Rapid Res Negative (Negative)
[2021-10-20] MEDS ORDERED: NA CHLORIDE 0.9% 250 ML ONE (14:43)
[2021-10-20 15:17] LABS: Urine Blood 3+ (Negative); Urine Glucose Negative (Negative); Urine Protein Negative (Negative)
--- NOTE | 2021-10-20 15:41 | EDPHYS ---
Physician Documentation [facility] Name: Sugar Magana Age: 41 yrs Sex: Female : 1980 Arrival Date: 10/20/2021 Time: 11:22 Bed 2 Private MD: ED Physician Umair Wetzel HPI: 10/20 11:33 This 41 yrs old Female presents to ER via Unassigned with complaints of Shortness Of ms3 Breath, fast heart rate. 11:33 41-year-old female with no past medical history presents for heavy vaginal bleeding ms3 that began on Monday. Patient states she is using multiple pads per day and is unaware of the number. Patient notes she is also having left lower quadrant abdominal pain she rates an 8/10. Patient states she took Midol, Tylenol without relief. Patient denies inciting factors. Patient endorses nausea, shortness of breath, rapid heart rate. Patient denies fevers or vomiting. Patient states she had this occur in the past where she required 3 units of packed red blood cell transfusion.. Historical: - Allergies: 15:22 Naproxen; mb8 - PMHx: 15:22 None; mb8 - PSHx: 15:22 section; mb8 - Social history:: Smoking status: Patient reports the use of cigarette tobacco products. ROS: 11:33 Constitutional: Negative for fever, and chills. Neck: Negative for injury, pain, and ms3 swelling. 11:33 MS/Extremity: Negative for injury and deformity, Skin: Negative for injury, rash, and discoloration, Psych: Negative for depression, anxiety, suicide ideation, homicidal ideation, and hallucinations. 11:33 Cardiovascular: Positive for palpitations. 11:33 Respiratory: Positive for shortness of breath. 11:33 All other systems are negative. 11:33 Abdomen/GI: Positive for abdominal pain, nausea, Negative for vomiting. ms3 11:33 : Positive for vaginal bleeding. Exam: 11:35 Constitutional: This is a well developed, well nourished patient who is awake, alert, ms3 and in no acute distress. Head/Face: Normocephalic, atraumatic. Neck: Trachea midline, no cervical lymphadenopathy. Supple, full range of motion without nuchal rigidity, or vertebral point tenderness. No Meningismus. Chest/axilla: Normal chest wall appearance and motion. Nontender with no deformity. 11:35 Respiratory: Lungs have equal breath sounds bilaterally, clear to auscultation and percussion. No rales, rhonchi or wheezes noted. No increased work of breathing, no retractions or nasal flaring. Abdomen/GI: Soft, non-tender, with normal bowel sounds. No distension or tympany. No guarding or rebound. No evidence of tenderness throughout. Skin: Warm, dry with normal turgor. Normal color with no rashes, no lesions, and no evidence of cellulitis. Psych: Awake, alert, with orientation to person, place and time. Behavior, mood, and affect are within normal limits. 11:35 Cardiovascular: Rate: tachycardic, Rhythm: regular, Pulses: no pulse deficits are appreciated, Heart sounds: normal. Vital Signs: 13:28 BP 133 / 84; Pulse 102; Resp 18; Temp 98.0; Pulse Ox 100% on R/A; iw 15:10 BP 120 / 73; Pulse 108; Resp 20; Temp 97.4; Pulse Ox 100% ; Pain 4/10; mb8 MDM: 11:37 Patient medically screened. ms3 15:40 Data reviewed: vital signs, nurses notes, lab test result(s), radiologic studies, and ms3 as a result, I will admit patient. Counseling: I had a detailed discussion with the patient and/or guardian regarding: the historical points, exam findings, and any diagnostic results supporting the discharge/admit diagnosis, lab results, radiology results, the need for outpatient follow up, to return to the emergency department if symptoms worsen or persist or if there are any questions or concerns that arise at home. 10/20 11:36 Order name: CBC with Diff; Complete Time: 14:33 ms3 10/20 11:36 Order name: CMP; Complete Time: 12:49 ms3 10/20 11:36 Order name: Type And Screen ms3 10/20 12:14 Order name: CBC Smear Scan; Complete Time: 14:33 EDMS 10/20 12:56 Order name: Bb Add On bd 10/20 13:41 Order name: Packed RBC Leukored EDMS 10/20 13:51 Order name: SARS RAPID; Complete Time: 14:33 bd 10/20 15:18 Order name: Urine Dipstick-Ancillary; Complete Time: 15:29 EDMS 10/20 16:33 Order name: Basic Metabolic Panel EDMS 10/20 16:33 Order name: Basic Metabolic Panel EDMS 10/20 16:33 Order name: CBC with Automated Diff EDMS 10/20 16:33 Order name: CBC with Automated Diff EDMS 10/20 16:33 Order name: Hemoglobin EDMS 10/20 11:36 Order name: IV Saline Lock; Complete Time: 12:23 ms3 10/20 11:36 Order name: Labs collected and sent; Complete Time: 12:23 ms3 10/20 13:12 Order name: Pelvis Complete; Complete Time: 13:34 EDMS 10/20 14:36 Order name: Urine Test (obtain specimen); Complete Time: 15:21 ms3 10/20 16:33 Order name: Regular EDMS Administered Medications: 16:37 Drug: Premarin 25 mg Route: IV; Rate: calculated rate; Site: left antecubital; mb8 16:50 Follow up: Response: No adverse reaction; IV Status: Completed infusion mb8 Disposition: 15:40 Critical Care:. ms3 Disposition Summary: 10/20/21 15:40 Hospitalization Ordered Hospitalization Status: Observation ms3 Condition: Stable ms3 Problem: new ms3 Symptoms: are unchanged ms3 Bed/Room Type: Standard ms3 Provider: Kenny Dimas(10/20/21 15:52) ms3 [facility]10[facility]21 16:49) Room Assignment: [facility]-(10/20/21 16:49) bd Diagnosis - Abnormal uterine and vaginal bleeding, unspecified ms3 - Anemia, unspecified ms3 - Shortness of breath ms3 Forms: - Medication Reconciliation Form ms3 - SBAR form ms3 Critical care time excluding procedures: 15:40 Critical care time: Bedside Care: 30 minutes, Consultation: 10 minutes. Total time: 40 ms3 minutes Signatures: Dispatcher [employer] EDEarlene Ramesh Diana RN Umair Frost DO DO ms3 Gerry Palacios RN RN mb8 Corrections: (The following items were deleted from the chart) 11:35 11:33 MS/Extremity: Negative for injury and deformity, Skin: Negative for injury, rash, ms3 and discoloration, Psych: Negative for depression, anxiety, suicide ideation, homicidal ideation, and hallucinations, ms3 12:55 11:37 Pelvis Complete+US.RAD.BRZ ordered. EDMS EDMS 13:12 12:55 Transvaginal Study Probe ordered. EDMS EDMS 15:52 15:40 Kennedy Tello ms3 ms3 16:49 15:40 Telemetry/MedSurg (observation) ms3 dw 16:49 15:40 ms3 dw 16:49 16:49 [facility] dw bd 16:49 16:49 271- dw bd
--- NOTE | 2021-10-20 15:41 | ER ---
Nurse's Notes [facility] Name: Sugar Magana Age: 41 yrs Sex: Female : 1980 Arrival Date: 10/20/2021 Time: 11:22 Bed 2 Private MD: Diagnosis: Abnormal uterine and vaginal bleeding, unspecified;Anemia, unspecified;Shortness of breath Presentation: 10/20 13:28 Chief complaint: Patient states: vaginal bleed since Monday, had a similar episode last iw year, was put on control. Coronavirus screen: At this time, the client does not indicate any symptoms associated with coronavirus-19. Ebola Screen: Patient negative for fever greater than or equal to 101.5 degrees Fahrenheit, and additional compatible Ebola Virus Disease symptoms Patient denies exposure to infectious person. Patient denies travel to an Ebola-affected area in the 21 days before illness onset. No symptoms or risks identified at this time. Initial Sepsis Screen: Does the patient meet any 2 criteria? No. Patient's initial sepsis screen is negative. Does the patient have a suspected source of infection? No. Patient's initial sepsis screen is negative. Risk Assessment: Do you want to hurt yourself or someone else? Patient reports no desire to harm self or others. Onset of symptoms was October 18, 2021. 13:28 Method Of Arrival: Ambulatory iw 13:28 Acuity: CHIVO 3 iw Historical: - Allergies: 15:22 Naproxen; mb8 - PMHx: 15:22 None; mb8 - PSHx: 15:22 section; mb8 - Social history:: Smoking status: Patient reports the use of cigarette tobacco products. Screenin:44 Abuse screen: Denies threats or abuse. Denies injuries from another. Nutritional iw screening: No deficits noted. Tuberculosis screening: No symptoms or risk factors identified. Assessment: 13:44 Reassessment: Patient appears in no apparent distress at this time. Patient and/or iw family updated on plan of care and expected duration. Pain level reassessed. Patient is alert, oriented x 3, equal unlabored respirations, skin warm/dry/pink. 15:23 General: Blood infusion started at 1450. mb8 Vital Signs: 13:28 BP 133 / 84; Pulse 102; Resp 18; Temp 98.0; Pulse Ox 100% on R/A; iw 15:10 BP 120 / 73; Pulse 108; Resp 20; Temp 97.4; Pulse Ox 100% ; Pain 4/10; mb8 ED Course: 11:22 Patient arrived in ED. am2 11:24 Umair Wetzel DO is Attending Physician. ms3 13:06 Marianna Thorpe, RN is Primary Nurse. iw 13:13 Pelvis Complete In Process Unspecified. EDMS 13:29 Triage completed. iw 13:42 Assist provider with pelvic exam: Set up pelvic tray. Performed by Umair Wetzel DO iw Patient tolerated well. 13:57 COVID swab sent to lab. vg1 15:25 Patient has correct armband on for positive identification. Client placed on continuous mb8 cardiac and pulse oximetry monitoring. NIBP monitoring applied. 15:38 Kennedy Tello is Hospitalizing Provider. ms3 15:52 Hospitalizing Provider role handed off by Kennedy Tello ms3 15:52 Kenny Dimas MD is Hospitalizing Provider. ms3 17:10 Patient admitted, IV remains in place. mb8 17:17 Primary Nurse role handed off by Marianna Thorpe, PHILIPPE em6 17:56 Gerry Palacios, RN is Primary Nurse. mb8 Administered Medications: 16:37 Drug: Premarin 25 mg Route: IV; Rate: calculated rate; Site: left antecubital; mb8 16:50 Follow up: Response: No adverse reaction; IV Status: Completed infusion mb8 Medication: 15:25 VIS not applicable for this client. mb8 Outcome: 15:40 Decision to Hospitalize by Provider. ms3 17:09 Admitted to L \T\ D, accompanied by nurse, accompanied by tech, via stretcher, room 271, mb8 on monitor, with chart. 17:10 Patient left the ED. mb8 21:00 Patient left the ED. roberta Signatures: Dispatcher [employer] EDMS Tash Narayanan RN Marianna Mckeon, RN Tanya Oviedo Victoria RN RN 1 Umair Wetzel DO DO ms3 Nayda Salmeron RN RN em6 Gerry Palacios, RN RN [email or web address] Corrections: (The following items were deleted from the chart) 13:12 12:55 In radiology for Transvaginal Study Probe. EDMS EDMS
[2021-10-20] MEDS ORDERED: ONDANSETRON 4 MG (ODT) TAB PO PRN (16:29)
[2021-10-20] MEDS ORDERED: ACETAMINOPHEN 500 MG TAB PO PRN (16:29)
[2021-10-20] MEDS ORDERED: ESTROGENS,CONJ 25 MG IV ONE (16:34)
[2021-10-20] MEDS ORDERED: ZOLPIDEM TARTRATE 10 MG TABLET PO PRN (17:20)
[2021-10-20] MEDS ORDERED: Oxycodone HCl/Acetaminophen 1 TAB TAB PO PRN (17:21)
[2021-10-20] MEDS ORDERED: TRANEXAMIC ACID 1,000 MG in NA CHLORIDE 0.9% 50 ML IV PRN (18:00)
[2021-10-20] MEDS: Ringers Lactate 1,000 ML IV SCH ×2 (18:00→21:38)
[2021-10-20 18:24] VITALS: BMI 44.9
[2021-10-20] MEDS ORDERED: Ringers Lactate 1,000 ML IV ONE (18:36)
--- NOTE | 2021-10-20 21:37 | PREOPHP ---
Date of Admission: 10/20/2021 History Of Present Illness: 41-year-old female with severe dysfunctional bleeding, says that she was in the emergency room in July of last year with same problem, had 3 units of blood given to her at t hat point, was put on control pills, but got off them because she said they were too expensive. Apparently, patient is not aware that she can get generic pills through [employer] at 9 dollars a lindsey h, and she says she can afford that of course. Workup thus far show hemoglobin of about 6.9, pulse g reater than 100. Patient is pale, but stable and alert at this point. Ultrasound demonstrated intra uterine contents, probably blood, possibly hyperplasia or polyp. No signs of fibroids. No signs of adnexal masses. We decided to proceed with endometrial biopsy to make sure that we do not have anyth ing more significant going on. Family History: Noncontributory for bleeding, although her mother had lung cancer. Both grandmother s on the paternal and maternal sides had breast cancer and was a grandfather with cancer as well, sit e uncertain. Past Medical History: She has no significant medical history other than she had . Allergies: NO ALLERGIES. Medications: No medicines prior to admission. Having no bleeding problems since she got off the pills until a few days ago when she started bleedin g heavily and of course now has presented to the emergency room with severe bleeding. The patient wa s examined. The uterus seems to be basically normal size. No adnexal masses. After cleaning the ce rvix, tenaculum was placed on the anterior cervical lip and endometrial biopsy was obtained, sent to Pathology. We will give her Premarin 25 mg IV and repeat that in an hour if needed and if this does not bring about control, we will give her 1 g of tranexamic acid. The patient knows that once we get the bleeding under control, we will put her on control pills and I advised her to stay on kiki h control pills indefinitely, and she agrees to this knowing now that she can get them much cheaper. Physical Examination: HEENT: Clear. Pupils equally round, reactive to light and accommodation. Conjunctivae pale of cour se. Heart and Lungs: Clear. Breasts: Not examined. Abdomen: Obese without tenderness. Extremities: Clear without edema, cyanosis, or clubbing. Pelvic: Demonstrates the uterus upper normal, but basically normal. No major tenderness. No adnexa l masses. Biopsy obtained. Assessment/plan: We will admit for blood transfusion, stabilization, Premarin IV, and proceed accord ing to response to our treatment. THANG/ALAN Voice ID: [id number]
[2021-10-20] MEDS ORDERED: NA CHLORIDE 0.9% 500 ML ONE (22:16)
[2021-10-21] MEDS ORDERED: D5LR 1,000 ML IV SCH (04:00)
[2021-10-21 05:56] LABS: Absolute Lymphocytes (CBC) 2.3 K/uL (0.7-4.9); Hematocrit 24.5 % (36.0-45.0); Lymphocytes % 25.9 % (15.3-44.8); MCV 75.5 fL (80-100); MPV 7.4 fL (7.6-11.3); RBC Red Blood Cell Count 3.24 M/uL (3.86-4.86)
[2021-10-21 06:10] LABS: Potassium 3.6 mmol/L (3.5-5.1)
[2021-10-21 07:19] LABS: Anisocytosis 2+; Blood Morphology Comment NOTED (NOT SEEN); Platelet Estimate ADEQ; White Blood Cell Scan OK (OK)
[2021-10-21 07:39] VITALS: BP 103/68; TEMP 97.8
--- NOTE | 2021-10-21 08:19 | DS ---
Hospital Course: The patient was admitted for severe dysfunctional uterine bleeding. She had same h istory in July of last year, was given 3 units of blood and IV drip, IV Pitocin, IV Premarin which ca used her bleeding to stop. She was placed on control pills, did quite well, but then stopped b ecause she said she could not afford them. Came in to our institution with a hemoglobin of less than 7 and elevated pulse. She is quite stable at all times. Endometrial biopsy was performed and is st ill pending. After the biopsy, she was given IV Premarin and the bleeding has again stopped. After single unit of blood, her hemoglobin is in the 8.2 range and her vital signs are all stable with a pu lse of around 70 to 80. This morning, she says she is hungry, we will ambulate her, then feed her, t hen ambulate again and if she remains without symptoms, dismiss her. We will phone in for Sprintec a generic control pill at [facility] should cost her in the range of 9 to 12 dollars a month, martina h she says she can afford. She is to come to my office next week for followup on the endometrial bio psy, to report any temperature elevation of 100 degrees or greater, severe pain, heavy bleeding, or a ny other type of abnormalities. Followup will depend upon endometrial biopsy report of course. All of this thoroughly discussed with the patient. Final Diagnoses: Severe dysfunctional bleeding, endometrial biopsy performed, IV Premarin, blood tra nsfusion. THANG/ALAN Voice ID: [id number] Report ID: [id number]
[2021-10-21 10:10] VITALS: O2SAT 97
== END 2021-10-21 12:00 | disposition home or self-care (01) ==
LOC: ER 11:22 → ERHOLD 16:27 → 2ND-WC 17:00
PROVIDERS: ADMIT Specialist; ATTEND Specialist
PROC: 30233N1 Transfusion of Nonautologous Red Blood Cells into Peripheral Vein, Percutaneous Approach (ICD-10-PCS; principal; 2021-10-20)
DX: D64.9 Anemia, unspecified (principal); N93.8 Other specified abnormal uterine and vaginal bleeding; R06.02 Shortness of breath; F17.210 Nicotine dependence, cigarettes, uncomplicated; Z20.822 Contact with and (suspected) exposure to COVID-19; Z80.1 Family history of malignant neoplasm of trachea, bronchus and lung; Z80.3 Family history of malignant neoplasm of breast
CPT/HCPCS: 36415; 36430; 76856; 80048; 80053; 81003; 85018; 85025; 86850; 86900; 86901; 87811; 88305; 96374; 99285; G0378; J1410; J7040; J7050; J7120; P9016

== ENCOUNTER 2022-01-24 14:42 | Emergency (ER) | payer SELFPAY ==
--- NOTE | 2022-01-24 15:56 | RAD REPORT ---
EXAM DESCRIPTION: RAD - Chest Pa And Lat (2 Views) - 01/24/2022 3:47 pm CLINICAL HISTORY: COUGH COMPARISON: Chest Single View dated 08/22/2020 FINDINGS: Lines: None. Lungs: No evidence of edema or pneumonia. Pleural: No significant pleural effusions or pneumothorax. Cardiac: The heart size is within normal limits. Mediastinum: Within normal limits. Bones: No acute fractures. Other: None IMPRESSION: No acute cardiopulmonary disease.
[2022-01-24] MEDS ORDERED: ACETAMINOPHEN 500 MG TAB ONE (16:27)
[2022-01-24 17:12] LABS: SARS-COV-2 RT PCR NEGATIVE (NEGATIVE)
--- NOTE | 2022-01-24 17:41 | EDPHYS ---
Physician Documentation [facility] Name: Sugar Magana Age: 41 yrs Sex: Female : 1980 Arrival Date: 01/24/2022 Time: 14:45 Bed Treatment Private MD: ED Physician Umair Wetzel HPI: 01/24 15:48 This 41 yrs old Female presents to ER via Ambulatory with complaints of Cough, Fever. ms3 15:48 The patient or guardian reports cough. Onset: The symptoms/episode began/occurred 3 ms3 week(s) ago. Severity of symptoms: At their worst the symptoms were moderate, in the emergency department the symptoms are unchanged. Modifying factors: The symptoms are alleviated by nothing, the symptoms are aggravated by nothing. Associated signs and symptoms: Pertinent positives: chest pain, with cough, Pertinent negatives: diarrhea, fever, nausea. 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 - Social history:: Smoking status: Reported history of juuling and/or vaping. Patient/guardian denies using alcohol. ROS: 15:48 Neck: Negative for injury, pain, and swelling. ms3 15:48 Constitutional: Positive for fever. 15:48 Cardiovascular: Positive for chest pain, with cough. 15:48 Respiratory: Positive for cough. 15:48 All other systems are negative. Exam: 15:48 Constitutional: This is a well developed, well nourished patient who is awake, alert, ms3 and in no acute distress. Neck: Trachea midline, no cervical lymphadenopathy. Supple, full range of motion without nuchal rigidity, or vertebral point tenderness. No Meningismus. Chest/axilla: Normal chest wall appearance and motion. Nontender with no deformity. 15:48 Cardiovascular: Regular rate and rhythm with a normal S1 and S2. No gallops, murmurs, or rubs. Normal PMI, no JVD. No pulse deficits. Respiratory: Lungs have equal breath sounds bilaterally, clear to auscultation and percussion. No rales, rhonchi or wheezes noted. No increased work of breathing, no retractions or nasal flaring. Abdomen/GI: Soft, non-tender, with normal bowel sounds. No distension or tympany. No guarding or rebound. No evidence of tenderness throughout. Back: No spinal tenderness. No costovertebral tenderness. Full range of motion. Skin: Warm, dry with normal turgor. Normal color with no rashes, no lesions, and no evidence of cellulitis. MS/ Extremity: Pulses equal, no cyanosis. Neurovascular intact. Full, normal range of motion. Vital Signs: 14:59 BP 143 / 85; Pulse 108; Resp 18; Temp 101.2(O); Pulse Ox 99% on R/A; Weight 77.11 kg; ld1 Height 5 ft. 0 in. (152.40 cm); Pain 7/10; 16:00 BP 138 / 82; Pulse 98; Resp 20; Pulse Ox 99% on R/A; em6 17:00 BP 144 / 84; Pulse 94; Resp 20; Pulse Ox 99% on R/A; em6 18:07 Temp 99.9(O); em6 14:59 Body Mass Index 33.20 (77.11 kg, 152.40 cm) ld1 MDM: 15:33 Patient medically screened. ms3 15:48 Differential Diagnosis: Bronchitis Influenza Upper Respiratory Infection Viral Syndrome ms3 Pneumonia. 17:41 Data reviewed: vital signs, nurses notes, lab test result(s), radiologic studies, and ms3 as a result, I will discharge patient. Counseling: I had a detailed discussion with the patient and/or guardian regarding: the historical points, exam findings, and any diagnostic results supporting the discharge/admit diagnosis, lab results, radiology results, the need for outpatient follow up, to return to the emergency department if symptoms worsen or persist or if there are any questions or concerns that arise at home. ED course: Discussed labs and imaging with patient. All questions were answered. Return precautions discussed include worsening symptoms, or any other concerns. Discussed Tamiflu or Xofluza with patient and patient elects for symptomatic treatment with Tylenol, ibuprofen, and fluids patient to follow-up with Dr. Shelton in 2 to 3 days. On reevaluation patient is alert and oriented x4, no apparent distress, nontoxic, ambulatory Emergency Department, speaking full sentences. 01/24 15:01 Order name: COVID-19/FLU A+B; Complete Time: 17:24 ld1 01/24 15:21 Order name: Chest Pa And Lat (2 Views) XRAY; Complete Time: 17:17 ms3 01/24 15:10 Order name: Labs - recollect needed: recollect covid, use pcr swab; Complete Time: 16:29bd Administered Medications: 16:29 Drug: Tylenol 1000 mg Route: PO; em6 17:00 Follow up: Response: No adverse reaction em6 Disposition Summary: 01/24/22 17:40 Discharge Ordered Location: Home ms3 Condition: Stable ms3 Diagnosis - Influenza due to identified novel influenza A virus ms3 - Cough ms3 - Fever, unspecified ms3 Followup: ms3 - With: Kael Shelton DO - When: 2 - 3 days - Reason: Recheck today's complaints Discharge Instructions: - Discharge Summary Sheet ms3 - Fever, Adult ms3 - Influenza, Adult ms3 Forms: - Medication Reconciliation Form ms3 - Thank You Letter ms3 - Antibiotic Education ms3 - Prescription Opioid Use ms3 Prescriptions: - Bromfed DM 2-30-10 mg/5 mL Oral syrup - take 10 milliliter by ORAL route every 4 hours; 200 milliliter; Refills: 0, ms3 Product Selection Permitted Signatures: Dispatcher [employer] Earlene Flores Marcus, DO DO ms3 Shanika Frost RN RN ld1 Nadya Salmeron RN RN em6
--- NOTE | 2022-01-24 17:41 | ER ---
Nurse's Notes [facility] Name: Sugar Magana Age: 41 yrs Sex: Female : 1980 Arrival Date: 01/24/2022 Time: 14:45 Bed Treatment Private MD: Diagnosis: Influenza due to identified novel influenza A virus;Cough;Fever, unspecified Presentation: 01/24 14:57 Chief complaint: Patient states: Cough X 3 weeks. Cough seems to be getting worse, ld1 unable to stop coughing. Coronavirus screen: At this time, the client does not indicate any symptoms associated with coronavirus-19. Ebola Screen: No symptoms or risks identified at this time. Initial Sepsis Screen: Does the patient meet any 2 criteria? No. Patient's initial sepsis screen is negative. Does the patient have a suspected source of infection? No. Patient's initial sepsis screen is negative. Risk Assessment: Do you want to hurt yourself or someone else? Patient reports no desire to harm self or others. Onset of symptoms was January 24, 2022. 14:57 Method Of Arrival: Ambulatory ld1 14:57 Acuity: CHIVO 4 ld1 Triage Assessment: 14:59 General: Appears in no apparent distress. comfortable, Behavior is calm, cooperative, ld1 appropriate for age. Pain: Denies pain. EENT: No signs and/or symptoms were reported regarding the EENT system. Neuro: Level of Consciousness is awake, alert, obeys commands, Oriented to person, place, time, situation. Cardiovascular: Capillary refill < 3 seconds Patient's skin is warm and dry. Respiratory: Airway is patent Respiratory effort is even, unlabored. GI: Abdomen is round non-distended. : No signs and/or symptoms were reported regarding the genitourinary system. Derm: No signs and/or symptoms reported regarding the dermatologic system. Musculoskeletal: No signs and/or symptoms reported regarding the musculoskeletal system. 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 - Social history:: Smoking status: Reported history of juuling and/or vaping. Patient/guardian denies using alcohol. Screenin:29 Abuse screen: Denies threats or abuse. Nutritional screening: No deficits noted. em6 Tuberculosis screening: No symptoms or risk factors identified. Fall Risk Total Shukla Fall Scale indicates No Risk (0-24 pts). Assessment: 16:29 General: Appears comfortable, Behavior is cooperative. Pain: Denies pain. Neuro: em6 Hinojosa Agitation-Sedation Scale (RASS): 0 - Alert and Calm. Cardiovascular: Patient's skin is warm and dry. Respiratory: Reports cough that is productive, Airway is patent Respiratory effort is even, unlabored, Respiratory pattern is regular, symmetrical. GI: Abdomen is non-distended, Abd is soft and non tender. : No signs and/or symptoms were reported regarding the genitourinary system. EENT: No signs and/or symptoms were reported regarding the EENT system. Derm: No signs and/or symptoms reported regarding the dermatologic system. Musculoskeletal: Circulation, motion, and sensation intact. 17:30 Reassessment: Patient appears in no apparent distress at this time. No changes from em6 previously documented assessment. Patient and/or family updated on plan of care and expected duration. Pain level reassessed. Patient is alert, oriented x 3, equal unlabored respirations, skin warm/dry/pink. Vital Signs: 14:59 BP 143 / 85; Pulse 108; Resp 18; Temp 101.2(O); Pulse Ox 99% on R/A; Weight 77.11 kg; ld1 Height 5 ft. 0 in. (152.40 cm); Pain 7/10; 16:00 BP 138 / 82; Pulse 98; Resp 20; Pulse Ox 99% on R/A; em6 17:00 BP 144 / 84; Pulse 94; Resp 20; Pulse Ox 99% on R/A; em6 18:07 Temp 99.9(O); em6 14:59 Body Mass Index 33.20 (77.11 kg, 152.40 cm) ld1 ED Course: 14:45 Patient arrived in ED. mr 14:59 Triage completed. ld1 14:59 Arm band placed on right wrist. EKG completed in triage. Results shown to MD. EKG ld1 completed in triage. Results shown to MD. 15:03 Umair Wetzel DO is Attending Physician. ms3 15:48 Chest Pa And Lat (2 Views) XRAY In Process Unspecified. EDMS 16:29 Nadya Salmeron, RN is Primary Nurse. em6 16:29 Bed in low position. Call light in reach. Side rails up X 1. Pulse ox on. NIBP on. Warm em6 blanket given. 17:40 Kael Shelton DO is Referral Physician. ms3 18:07 No provider procedures requiring assistance completed. Patient did not have IV access em6 during this emergency room visit. Administered Medications: 16:29 Drug: Tylenol 1000 mg Route: PO; em6 17:00 Follow up: Response: No adverse reaction em6 Medication: 18:08 VIS not applicable for this client. em6 Outcome: 17:40 Discharge ordered by . ms3 18:07 Discharged to home ambulatory. em6 18:07 Condition: stable 18:07 Discharge instructions given to patient, Instructed on discharge instructions, follow up and referral plans. medication usage, Demonstrated understanding of instructions, follow-up care, medications, Prescriptions given X 1. 18:08 Patient left the ED. em6 Signatures: Dispatcher [employer] EDPA Joceline Yoder mr Umair Wetzel DO DO ms3 Shanika Frost, RN RN ld1 Nadya Salmeron, RN RN em6
[2022-01-24 18:26] VITALS: O2SAT 99
[2022-01-24 18:28] VITALS: BP 144/84
[2022-01-24 18:29] VITALS: TEMP 99.9
== END 2022-01-24 18:08 | disposition home or self-care (01) ==
LOC: ER 14:42
DX: J10.1 Influenza due to other identified influenza virus with other respiratory manifestations (principal); R50.9 Fever, unspecified; Z20.822 Contact with and (suspected) exposure to COVID-19; Z88.6 Allergy status to analgesic agent
CPT/HCPCS: 0240U; 71046; 99284